=== PATIENT | male | born 1960 | race Caucasian/White ===

== ENCOUNTER → 2021-06-07 | Outpatient (CLI) | payer OTHER | LOC: MRI 10:14 | DX: Z12.89 Encounter for screening for malignant neoplasm of other sites (principal); C34.00 Malignant neoplasm of unspecified main bronchus | CPT/HCPCS: 70553; A9577 ==

== ENCOUNTER → 2021-10-29 | Outpatient (CLI) | payer OTHER | LOC: CT 09:50 | DX: C34.00 Malignant neoplasm of unspecified main bronchus (principal); Z12.89 Encounter for screening for malignant neoplasm of other sites; R91.8 Other nonspecific abnormal finding of lung field | CPT/HCPCS: 71260; Q9967 ==

== ENCOUNTER → 2022-01-28 | Outpatient (CLI) | payer OTHER | LOC: CT 14:14 | DX: Z12.89 Encounter for screening for malignant neoplasm of other sites (principal); C34.00 Malignant neoplasm of unspecified main bronchus | CPT/HCPCS: 71260; Q9967 ==

== ENCOUNTER → 2022-05-27 | Outpatient (CLI) | payer OTHER | LOC: EXRD 12:56 | DX: C24.1 Malignant neoplasm of ampulla of Vater (principal); C34.00 Malignant neoplasm of unspecified main bronchus; E04.2 Nontoxic multinodular goiter | CPT/HCPCS: 76536 ==